=== PATIENT | male | born 1995 | race Two or more races ===

== ENCOUNTER 2017-12-10 10:51 | Emergency (ER) | payer SELFPAY ==
--- NOTE | 2017-12-10 11:50 | EDPHY ---
H & P Stated Complaint: ETOH, FALL, CONTUSION TO FOREHEAD Source: Patient Exam Limitations: No limitations - Personal History Current Tetanus/Diphtheria Vaccine: Yes - Medical/Surgical History Hx Asthma: No Hx Chronic Respiratory Disease: No Hx Diabetes: No Hx Cardiac Disease: No Hx Renal Disease: No Hx Cirrhosis: No Hx Alcoholism: No Hx HIV/AIDS: No Hx Splenectomy or Spleen Trauma: No - Social History Smoking Status: Never smoked Time Seen by Provider: 12/10/17 11:18 HPI/ROS: CHIEF COMPLAINT: Head injury, alcohol intoxication HISTORY OF PRESENT ILLNESS: The patient was brought in as a limited trauma activation after he reportedly had a ground level fall in the setting of recent alcohol intoxication. The patient denies loss of consciousness. The patient does admit to drinking heavily today. He denies significant headache or neck pain. The patient denies any abdominal pain, chest pain, back pain or difficulty breathing. REVIEW OF SYSTEMS: A comprehensive 10 point review of systems is otherwise negative aside from elements mentioned in the history of present illness. (Saw Bai) - Physical Exam Exam: General Appearance: Alert, no distress, alcohol on breath Head: Hematoma noted to forehead Eyes: Pupils equal, round, reactive ENT, Mouth: No hemotympanum, no oral trauma Neck: Nontender, trachea midline Respiratory: No chest wall tender, subcutaneous air, lungs clear bilaterally Cardiovascular: Regular rate and rhythm Abdomen: Abdomen is soft and nontender, pelvis stable Skin: No lacerations, No abrasion Back: No midline T/L/S pain Extremities: Nontender, full range of motion Neurological: A&Ox3, normal motor function, normal sensory exam (Saw Bai) Constitutional: Initial Vital Signs Temperature (C) 36.8 C 12/10/17 10:58 Heart Rate 110 H 12/10/17 10:58 Respiratory Rate 16 12/10/17 10:58 Blood Pressure 153/80 H 12/10/17 10:58 O2 Sat (%) 97 12/10/17 10:58 O2 Delivery Mode Room Air Allergies/Adverse Reactions: No Known Allergies Allergy (Unverified 12/10/17 10:58) Home Medications: Medication Instructions Recorded NK [No Known Home Meds] 12/10/17 Medical Decision Making ED Course/Re-evaluation: Patient presents to the ED with head trauma in the setting of alcohol intoxication. His GCS is currently 15. He is in no acute distress. He is quite intoxicated with a blood alcohol level of 0.387. Given his hematoma intoxication I did offer a CT scan of the head which the patient is declining. He understands that he needs to stay in the emergency department until he is clinically sober. At 2:00 p.m. the patient was again offered a head CT scan and declined. The patient will continue to await sobriety in the emergency department. The patient will be turned over to Dr. Ajit Barbosa at shift change pending sobriety and reassessment. (Saw Bai) Differential Diagnosis: Differential diagnosis considered includes alcohol intoxication, intracranial hemorrhage, concussion, skull fracture (Saw Bai) Other Provider: Care assumed from Dr. Bai at 2:45 p.m. with plan for serial observations until clinically sober. 1640: Patient is alert and ambulatory, fluent speech, appears clinically sober. Cervical spine nontender. Pupils are equal reactive and speech is normal, not ataxic, extraocular motions normal. Declines CT which I think at this point in time is reasonable. Stable for discharge. Head injury instructions discussed with GF on phone by nurse. She will be with him tonight. (Ajit Barbosa) Departure - Departure Disposition: Home, Routine, Self-Care Clinical Impression: Alcoholic intoxication Qualifiers: Complication of substance-induced condition: uncomplicated Qualified Code(s): F10.920 - Alcohol use, unspecified with intoxication, uncomplicated Scalp contusion Qualifiers: Encounter type: initial encounter Qualified Code(s): S00.03XA - Contusion of scalp, initial encounter Condition: Good Instructions: Alcohol Intoxication (ED), Contusion in Adults (ED), Head Injury (ED) Additional Instructions: 1. Take Ibuprofen or Motrin 600 mg by mouth three times a day. 2. Return to the ED for severe headache, vomiting or other concerns. Referrals: Talon Scott MD [Medical Doctor] - As per Instructions
[2017-12-10 16:46] VITALS: RESP 18
[2017-12-10 17:23] VITALS: BP 137/88; PULSE 98; TEMP 98.1; O2SAT 97
== END 2017-12-10 17:23 | disposition home or self-care (01) ==
DX: S00.03XA Contusion of scalp, initial encounter (principal); F10.920 Alcohol use, unspecified with intoxication, uncomplicated; W19.XXXA Unspecified fall, initial encounter